=== PATIENT | female | born 1995 | race African-American/Black ===

== ENCOUNTER 2019-08-29 17:59 | Emergency (ER) | payer MEDICAID ==
[~2019-08-29] VITALS: Ht 160 cm; Wt 45.4 kg
[2019-08-29 18:16] VITALS: BP 135/89
== END 2019-08-29 20:38 | disposition home or self-care (01) ==
LOC: ER 17:59 → EDBD 17:59 → ER 20:38
DX: S06.0X9A Concussion with loss of consciousness of unspecified duration, initial encounter (principal); S16.1XXA Strain of muscle, fascia and tendon at neck level, initial encounter; S40.021A Contusion of right upper arm, initial encounter; M25.511 Pain in right shoulder; R42 Dizziness and giddiness; V43.62XA Car passenger injured in collision with other type car in traffic accident, initial encounter; Y93.89 Activity, other specified; Y92.488 Other paved roadways as the place of occurrence of the external cause; Y99.8 Other external cause status
CPT/HCPCS: 70450; 72125; 73030; 73060; 73070